=== PATIENT | male | born 1955 | race African-American/Black ===

== ENCOUNTER 2017-05-06 08:14 | Emergency (ER) | payer OTHER ==
[~2017-05-06] VITALS: Ht 185.4 cm; Wt 93.2 kg
[2017-05-06] MEDS ORDERED: AMLO-511 PO (08:35)
[2017-05-06] MEDS ORDERED: TRAZ-147 PO (08:35)
[2017-05-06] MEDS ORDERED: VITAD1000 PO (08:35)
[2017-05-06] MEDS ORDERED: SIMV-259 PO (08:35)
[2017-05-06] MEDS ORDERED: IBUPROFEN 600 MG TABLET PO ONE (09:15)
[2017-05-06 10:23] VITALS: BP 136/84
== END 2017-05-06 10:25 | disposition home or self-care (01) ==
LOC: EMS 08:16
DX: S46.002A Unspecified injury of muscle(s) and tendon(s) of the rotator cuff of left shoulder, initial encounter (principal); M54.2 Cervicalgia; M25.512 Pain in left shoulder; I10 Essential (primary) hypertension; F17.210 Nicotine dependence, cigarettes, uncomplicated; X58.XXXA Exposure to other specified factors, initial encounter; Y93.61 Activity, american tackle football; Y92.89 Other specified places as the place of occurrence of the external cause; Y99.8 Other external cause status
CPT/HCPCS: 99284

== ENCOUNTER 2022-02-24 05:15 | Emergency (ER) | payer OTHER ==
[~2022-02-24] VITALS: Ht 188 cm; Wt 95.5 kg
[~2022-02-24 05:15] MED LIST: AMLO-257 PO; CHOL100018 PO; SIMV-259 PO; TRAZ-257 PO
[2022-02-24 05:22] VITALS: BP 152/74
[2022-02-24] MEDS ORDERED: IBUPROFEN 600 MG TABLET PO ONE (06:30)
== END 2022-02-24 07:29 | disposition home or self-care (01) ==
LOC: EMS 05:16
DX: M25.561 Pain in right knee (principal); I10 Essential (primary) hypertension; F17.210 Nicotine dependence, cigarettes, uncomplicated; Z88.5 Allergy status to narcotic agent; Z79.899 Other long term (current) drug therapy
CPT/HCPCS: 99283

== ENCOUNTER 2023-07-20 09:56 | Emergency (ER) | payer OTHER ==
[~2023-07-20] VITALS: Ht 185.4 cm; Wt 90.9 kg
[2023-07-20 10:10] VITALS: TEMP 98.6
[2023-07-20] MEDS ORDERED: KETOROLAC TROMETHAMINE 30 MG/ML VIAL IM ONE (12:15)
[2023-07-20] MEDS ORDERED: HYDROCODONE/ACETAMINOPHEN 5-325 MG TABLET PO ONE (12:15)
[2023-07-20] MEDS ORDERED: AMLO10TA55 PO (12:19)
[2023-07-20] MEDS ORDERED: SIMV-46 PO (12:19)
[2023-07-20] MEDS ORDERED: LOSA1TAB40 PO (12:19)
[2023-07-20] MEDS ORDERED: TRAM-559 PO (12:47)
[2023-07-20 13:55] VITALS: BP 131/70; PULSE 70; RESP 18
== END 2023-07-20 13:56 | disposition home or self-care (01) ==
LOC: EMS 10:37
DX: M19.90 Unspecified osteoarthritis, unspecified site (principal); I10 Essential (primary) hypertension; F17.210 Nicotine dependence, cigarettes, uncomplicated; Z88.5 Allergy status to narcotic agent
CPT/HCPCS: 99283; 73503; 96372; J1885